=== PATIENT | female | born 1945 | race Caucasian/White ===

== ENCOUNTER 2021-01-20 12:53 | Inpatient (IN) | payer MEDICARE, OTHER ==
[~2021-01-20] VITALS: Ht 160 cm; Wt 116.8 kg
[~2021-01-20 12:53] MED LIST: ALLERGY RELIEF10 M1 PO; AMBIEN10 MG PO; ANTIVERT25 MG PO; ASCORBIC ACID500 MG PO; ASPIRIN325 MG PO; CALCIUM 500 +1 EACH PO; FLEXERIL10 MG PO; HUMULIN N100 UNIT/3 SQ; IBUPROFEN800 MG PO; ISOSORBIDE MONO60 MG PO; LASIX40 MG PO; LEVAQUIN750 M1 PO; LOVAZA1 GM PO; MEDROL 4MG DOSEP4 MG PO; NEURONTIN400 MG PO; NITROQUIK SL0.4 MG SL; NOVOLOG DO100 UNIT/M SQ; NOVOLOG VI100 UNIT/1 SQ; PLAVIX75 MG PO; PRAVACHOL20 MG PO; PRINIVIL20 MG PO; SYNTHROID100 MCG PO; TENORMIN50 MG PO; XANAX0.5 MG PO
[2021-01-20 13:30] LABS: BASOPHIL 0.2 % (0-2); EOSINOPHIL 0.2 % (0-7); HGB 13.6 g/dl (12.5-16.0); LYMPHOCYTE 7.3 % (15-48); MCH 26.4 pg (25.0-31.0); MCHC 31.6 g/dL (32.0-36.0); MCV 83.3 fL (78.0-100.0); MONOCYTE 7.6 % (0-12); MPV 9.8 fL (6.0-9.5); NEUTROPHIL 83.8 % (41-80); NRBC 0; PLT 299 K/uL (150-400); RBC 5.16 M/uL (4.20-5.40)
[2021-01-20 13:31] LABS: WBC 26.2 K/uL (4.0-10.5)
[2021-01-20 13:43] LABS: BILIRUBIN NEGATIVE (NEGATIVE); BLOOD TRACE-INTACT Ery/uL (NEGATIVE); CLARITY CLEAR (CLEAR); COLOR YELLOW (YELLOW); GLUCOSE (U) NORMAL (NORMAL); LEUKOCYTES NEGATIVE Leu/uL (NEGATIVE); NITRITE NEGATIVE (NEGATIVE); PROTEIN NEGATIVE (NEGATIVE); UROBILINOGEN 0.2 mg/dL (0.2-1.0)
[2021-01-20 14:22] LABS: ALBUMIN 3.1 g/dL (3.4-5.0); BILIRUBIN - TOTAL 0.5 mg/dL (0.2-1.0); BUN/CREAT RATIO (CALC) 20.4 RATIO; C-REACTIVE PROTEIN 3.4 mg/dL (<=0.90); CREATININE 0.93 mg/dL (0.51-0.95); GLOBULIN (CALCULATION) 3.8 g/dL; MAGNESIUM 2.2 mg/dL (1.8-2.4); POTASSIUM 4.5 mmol/L (3.5-5.1); TOTAL PROTEIN 6.9 g/dL (6.4-8.2)
[2021-01-20 14:23] LABS: SQUAMOUS EPITHELIAL CELLS RARE; URINARY WBC RARE
[2021-01-20 14:47] LABS: IRON % SATURATION 20.8 %SAT (20-50)
[2021-01-20 14:51] LABS: LACTIC ACID 3.1 mmol/L (0.4-1.9)
[2021-01-21] MEDS ORDERED: PRAVASTATIN SOD40 MG PO (01:01)
[2021-01-21] MEDS ORDERED: AMBIEN10 MG PO (01:03)
[2021-01-21] MEDS ORDERED: PRILOSEC20 MG PO (01:04)
[2021-01-21] MEDS ORDERED: NORTRIPTYLINE H10 MG PO (01:07)
[2021-01-21 06:01] LABS: BASOPHIL 0.2 % (0-2); EOSINOPHIL 0.9 % (0-7); HCT 35.1 % (37.0-47.0); LYMPHOCYTE 17.4 % (15-48); MCHC 31.3 g/dL (32.0-36.0); MPV 10.2 fL (6.0-9.5); NEUTROPHIL 74.2 % (41-80); NRBC 0; PLT 137 K/uL (150-400); RBC 4.23 M/uL (4.20-5.40); RDW 14.3 % (11.5-14.0); WBC 9.4 K/uL (4.0-10.5)
[2021-01-21 06:23] LABS: ALBUMIN 2.6 g/dL (3.4-5.0); BILIRUBIN - TOTAL 0.3 mg/dL (0.2-1.0); BUN/CREAT RATIO (CALC) 33.3 RATIO; CREATININE 0.69 mg/dL (0.51-0.95); GLOBULIN (CALCULATION) 3.8 g/dL; POTASSIUM 3.8 mmol/L (3.5-5.1); TOTAL PROTEIN 6.4 g/dL (6.4-8.2)
[2021-01-22] MEDS ORDERED: CIPRO500 MG PO (09:21)
[2021-01-22] MEDS ORDERED: METRONIDAZOLE500 MG PO (09:21)
[2021-01-22] MEDS ORDERED: ONDANSETRON ODT4 MG PO (09:22)
[2021-01-22] MEDS ORDERED: DULCOLAX5 MG PO (09:22)
--- NOTE | 2021-01-22 13:00 | NUR ---
IV REMOVED PRIOR TO DISCHARGE, NO BLEEDING NOTED. DISCUSSED DISCHARGE INSTRUCTIONS WITH PATIENT AND . PATIENT IN STABLE CONDITION. DISCHARGED HOME WIHT ON PORTABLE O2 TANK. INFORMED TO MAKE FOLLOW UP APT WITH PCP AND ADVERTISING AGENCY MANAGER NEW SCRIPTS AT PHARMACY
[2021-01-23 08:11] LABS: HBSAG SCREEN Negative (Negative); HEP B CORE AB, TOT Negative (Negative); HEP C VIRUS AB <0.1 (0.0-0.9)
== END 2021-01-22 12:40 | disposition home or self-care (01) | DRG 392 ==
LOC: FER 12:53 → FMS 18:01
PROVIDERS: Emergency Medicine; Nurse Practitioner; ADMIT Allergy & Immunology Allergy
DX: K52.89 Other specified noninfective gastroenteritis and colitis (principal); J98.11 Atelectasis; Q44.7 Other congenital malformations of liver; Z68.42 Body mass index [BMI] 45.0-49.9, adult; R65.10 Systemic inflammatory response syndrome (SIRS) of non-infectious origin without acute organ dysfunction; K59.09 Other constipation; K74.60 Unspecified cirrhosis of liver; Z20.822 Contact with and (suspected) exposure to COVID-19; J44.9 Chronic obstructive pulmonary disease, unspecified; I11.0 Hypertensive heart disease with heart failure; I50.9 Heart failure, unspecified; E78.5 Hyperlipidemia, unspecified; E66.9 Obesity, unspecified; E11.40 Type 2 diabetes mellitus with diabetic neuropathy, unspecified; L40.9 Psoriasis, unspecified; E89.0 Postprocedural hypothyroidism; G89.29 Other chronic pain; Z66 Do not resuscitate; F41.9 Anxiety disorder, unspecified; F32.9 Major depressive disorder, single episode, unspecified; Z99.81 Dependence on supplemental oxygen; Z86.73 Personal history of transient ischemic attack (TIA), and cerebral infarction without residual deficits; I25.2 Old myocardial infarction; Z90.710 Acquired absence of both cervix and uterus; Z90.49 Acquired absence of other specified parts of digestive tract; Z98.890 Other specified postprocedural states; Z87.891 Personal history of nicotine dependence; Z88.0 Allergy status to penicillin; Z88.5 Allergy status to narcotic agent; Z88.8 Allergy status to other drugs, medicaments and biological substances; Z91.013 Allergy to seafood; Z79.82 Long term (current) use of aspirin; Z79.02 Long term (current) use of antithrombotics/antiplatelets; Z79.4 Long term (current) use of insulin; Z79.890 Hormone replacement therapy; Z79.899 Other long term (current) drug therapy
CPT/HCPCS: 36415; 71250; 74183; 80053; 81001; 82105; 82728; 82962; 83540; 83550; 83605; 83690; 83735; 84145; 84443; 84484; 85025; 85379; 86140; 86704; 86706; 86708; 86803; 87040; 87088; 87340; 93005; A9579; G0378; J2405; J7030; U0002

== ENCOUNTER 2021-11-04 16:43 | Emergency (ER) | payer MEDICARE, OTHER ==
[~2021-11-04 16:43] MED LIST changes: +CIPRO500 MG PO; +DULCOLAX5 MG PO; +METRONIDAZOLE500 MG PO; +NORTRIPTYLINE H10 MG PO; +ONDANSETRON ODT4 MG PO; +PRAVASTATIN SOD40 MG PO; +PRILOSEC20 MG PO
[2021-11-04 17:51] LABS: BASOPHIL 0.2 % (0-2); EOSINOPHIL 0.4 % (0-7); HCT 37.5 % (37.0-47.0); HGB 12.4 g/dl (12.5-16.0); LYMPHOCYTE 11.2 % (15-48); MCH 26.6 pg (25.0-31.0); MCHC 33.1 g/dL (32.0-36.0); MCV 80.5 fL (78.0-100.0); MONOCYTE 5.9 % (0-12); MPV 9.4 fL (6.0-9.5); NEUTROPHIL 81.8 % (41-80); NRBC 0; PLT 258 K/uL (150-400); RBC 4.66 M/uL (4.20-5.40); RDW 14.4 % (11.5-14.0); WBC 13.8 K/uL (4.0-10.5)
[2021-11-04 18:03] LABS: BILIRUBIN - TOTAL 0.5 mg/dL (0.2-1.0); CREATININE 0.44 mg/dL (0.51-0.95); GLOBULIN (CALCULATION) 4.5 g/dL; POTASSIUM 4.4 mmol/L (3.5-5.1); TOTAL PROTEIN 7.5 g/dL (6.4-8.2)
[2021-11-04 18:11] LABS: LACTIC ACID 1.3 mmol/L (0.4-1.9)
[2021-11-04 18:46] LABS: CORONAVIRUS 2019 SARS-COV-2 NEGATIVE (NEGATIVE); INFLUENZA A NAA NEGATIVE (NEGATIVE)
[2021-11-04 20:48] LABS: BILIRUBIN NEGATIVE (NEGATIVE); BLOOD NEGATIVE Ery/uL (NEGATIVE); CLARITY CLEAR (CLEAR); COLOR YELLOW (YELLOW); GLUCOSE (U) NORMAL (NORMAL); LEUKOCYTES NEGATIVE Leu/uL (NEGATIVE); NITRITE NEGATIVE (NEGATIVE); PROTEIN TRACE (LOW) mg/dL (NEGATIVE); SPECIFIC GRAVITY 1.015 (1.001-1.030); UROBILINOGEN 0.2 mg/dL (0.2-1.0)
[2021-11-05 01:24] LABS: BUN/CREAT RATIO (CALC) 20.5 RATIO; CREATININE 0.44 mg/dL (0.51-0.95); POTASSIUM 4.4 mmol/L (3.5-5.1)
== END 2021-11-05 04:05 | disposition home or self-care (01) ==
LOC: FER 16:43
PROVIDERS: Internal Medicine; Nurse Practitioner Family
DX: E87.1 Hypo-osmolality and hyponatremia (principal); R19.7 Diarrhea, unspecified; R10.33 Periumbilical pain; E11.9 Type 2 diabetes mellitus without complications; I11.0 Hypertensive heart disease with heart failure; I50.9 Heart failure, unspecified; Z20.822 Contact with and (suspected) exposure to COVID-19; Z88.8 Allergy status to other drugs, medicaments and biological substances; Z91.013 Allergy to seafood
CPT/HCPCS: 36415; 80048; 80053; 81003; 83605; 85025; 87040; J2405; J7030; U0002